=== PATIENT | male | born 1950 | race Caucasian/White ===

== ENCOUNTER 2016-12-05 10:16 | Emergency (ER) | payer OTHER ==
[~2016-12-05] VITALS: Ht 167.6 cm; Wt 84.0 kg
[2016-12-05 10:29] VITALS: Ht 167.6 cm; Wt 84.0 kg
--- NOTE | 2016-12-05 14:22 | ERA ---
ER Documentation Chief Complaint Date/Time DATE: 12/05/16 TIME: 14:21 Chief Complaint dizziness starting this morning; nausea HPI The patient is a 66-year-old male, presenting to the ER because he felt dizzy as if the room is spinning this morning. He has similar symptoms previously. The symptoms started when he got up from sitting down. He has similar symptoms previously. He denies headache, fever, chills, neck pain, chest pain, dyspnea, abdominal pain, vomiting, diarrhea, constipation. He does not smoke, drink Past medical history: Hypertension, CAD, psoriasis Past medical history: Cardiac angiogram 5 years ago ROS All systems reviewed and are negative except as per history of present illness. Medications Home Meds Active Scripts Meclizine Hcl* (Meclizine Hcl*) 25 Mg Tablet, 25 MG PO Q8H Y for DIZZINESS, #20 TAB Prov:ANGELICA KOENIG MD 12/05/16 Reported Medications Aspirin (Low Dose Aspirin) 81 Mg Tablet.dr, 81 MG PO DAILY, #30 TAB 12/05/16 Amlodipine Besylate* (Norvasc*) 5 Mg Tablet, 5 MG PO DAILY, TAB 12/05/16 Simvastatin* (Zocor*) 20 Mg Tablet, 20 MG PO QHS, #30 TAB 12/05/16 Metoprolol Succinate* (Toprol XL*) 100 Mg Tab.sr.24h, 100 MG PO DAILY, #30 TAB 12/05/16 Allergies Allergies: Coded Allergies: No Known Allergy (Unverified , 12/05/16) Physical Exam Vitals Vital Signs Date Time Temp Pulse Resp B/P Pulse Ox O2 Delivery O2 Flow Rate FiO2 12/05/16 10:29 97.6 62 18 180/84 98 Physical Exam Const: No acute distress. Head: Atraumatic. Eyes: Normal Conjunctiva. ENT: Normal External Ears, Nose and Mouth. Neck: Full range of motion. No meningismus. Resp: Clear to auscultation bilaterally. Cardio: Regular rate and rhythm, no murmurs. Abd: Soft, non distended, normal bowel sounds, non tender. Skin: No petechiae or rashes. Back: No midline or flank tenderness. Ext: No cyanosis, or edema. Neur: Awake and alert. No focal deficit Psych: Normal Mood and Affect. Result Diagram: 12/05/16 1445 12/05/16 1445 Results 24 hrs Laboratory Tests Test 12/05/16 14:45 Activated Partial Thromboplast Time 27.5Sec Anion Gap 15 Basophils # 0.010^3/ul Basophils % 0.5% Blood Urea Nitrogen 16mg/dl Calcium Level 9.3mg/dl Carbon Dioxide Level 29mmol/L Chloride Level 103mmol/L Creatinine 0.65mg/dl Eosinophils # 0.010^3/ul Eosinophils % 0.2% Glucose Level 98mg/dl Hematocrit 41.0% Hemoglobin 13.7g/dl INR International Normalized Ratio 0.95 Lymphocytes # 1.210^3/ul Lymphocytes % 14.7% Mean Corpuscular Hemoglobin 30.6pg Mean Corpuscular Hemoglobin Concent 33.3g/dl Mean Corpuscular Volume 91.8fl Mean Platelet Volume 8.6fl Monocytes # 0.510^3/ul Monocytes % 6.0% Neutrophils # 6.410^3/ul Neutrophils % 78.6% Nucleated Red Blood Cells # 0.010^3/ul Nucleated Red Blood Cells % 0.0/100WBC Platelet Count 92137^3/UL Potassium Level 4.0mmol/L Prothrombin Time 12.7Sec Prothrombin Time Ratio 1.0 Red Blood Count 4.4610^6/ul Red Cell Distribution Width 13.8% Sodium Level 143mmol/L White Blood Count 8.110^3/ul Current Medications Medications (Trade) Dose Ordered Sig/Rogelio Route PRN Reason Start Time Stop Time Status Last Admin Dose Admin Meclizine HCl (Antivert) 25 mg ONCE ONCE PO 12/05/16 15:00 12/05/16 15:01 DC 12/05/16 15:54 Procedures/MDM EKG: Read by emergency physician Rate/Rhythm: Normal Sinus Rhythm 60 beats per min QRS, ST, T-waves: No ST elevation, no T wave inversion Impression: Normal EKG [place] [id number] Radiology Main Line: [phone] DIAGNOSTIC IMAGING REPORT Patient: GABY CRENSHAW : 1950 Age: 66 Sex: M MR #: [id number] DOS: 12/05/16 1436 Ordering MD: ANGELICA KOENIG MD Location: E/R Room/Bed: PROCEDURE: CT Brain without contrast. CLINICAL INDICATION: Dizziness, syncope TECHNIQUE: Routine CT scan of the brain was performed on a high resolution multi detector scanner without intravenous contrast. One or more of the following dose reduction techniques were used: Automated exposure control; Adjustment of the mA and/or kV according to patient size; Use of iterative reconstruction technique. CTDI = 44 mGy. DLP = 720 mGy-cm. COMPARISON: No prior relevant examinations are available for comparison. FINDINGS: Hemorrhage: No evidence of intracranial hemorrhage. Acute ischemic changes: No evidence of acute ischemic changes. Mass effect/Midline shift: None. Parenchymal volume: Within normal limits for age. Ventricular system: Concordant with parenchymal volume. Chronic changes: Mild chronic-appearing microvascular ischemic changes of the supratentorial white matter. Atherosclerotic calcifications of the cavernous portions of both internal carotid arteries are present. Extracranial soft tissues: Unremarkable. Calvarium: No fractures. 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 Paranasal sinuses: Visualized paranasal sinuses are clear. Mastoid air cells: Visualized mastoid air cells are clear. IMPRESSION: No acute intracranial abnormalities. Mild chronic-appearing microvascular ischemic changes of the supratentorial white matter. RPTAT: AADD .Chucho Paul MD, MD Date Time Electronically viewed and signed by .Chucho Paul MD, on 12/05/2016 15:41 .B/ CC: ANGELICA KOENIG MD MEDICAL MAKING DECISION: The patient is a 66-year-old male, presenting with acute dizziness of unclear etiology. The differential diagnoses considered include but are not limited to central causes such as cerebellar infarct, cerebellar hemorrhage, cerebellar tumor, acoustic neuroma, peripheral causes such as benign positional vertigo, labyrinthitis, medication, Meniere's disease. He was treated with Antivert with good response. Departure Diagnosis: Primary Impression: Dizziness Condition: Good Comments He was discharged with Antivert I discussed the findings with the patient. I advised the patient to follow-up with the primary physician in about 1-2 days, sooner if needed and return if any concern. ANGELICA KOENIG MD Dec 05, 2016 14:21
[2016-12-05] MEDS ORDERED: METO100T13 PO (14:38)
[2016-12-05] MEDS ORDERED: AMLO5TAB4 PO (14:42)
[2016-12-05] MEDS ORDERED: ASPI-664 PO (14:42)
[2016-12-05] MEDS ORDERED: SIMV20TA97 PO (14:42)
[2016-12-05] MEDS ORDERED: MECLIZINE 12.5 MG TAB PO ONE (15:00)
[2016-12-05 15:09] LABS: BASOPHILS % 0.5 % (0.0-2.0); EOSINOPHILS % 0.2 % (0.0-7.0); HEMOGLOBIN 13.7 g/dl (14.0-18.0); LYMPHOCYTES # 1.2 10^3/ul (0.8-2.9); LYMPHOCYTES % 14.7 % (15.0-51.0); MEAN CORPUSCULAR HEMOGLOBIN 30.6 pg (29.0-33.0); MEAN CORPUSCULAR HGB CONC 33.3 g/dl (32.0-37.0); MEAN CORPUSCULAR VOLUME 91.8 fl (82.0-101.0); MEAN PLATELET VOLUME 8.6 fl (7.4-10.4); MONOCYTE # 0.5 10^3/ul (0.3-0.9); NEUTROPHIL # 6.4 10^3/ul (1.6-7.5); NEUTROPHILS % 78.6 % (39.0-77.0); PLATELET COUNT 191 10^3/UL (140-440); RED BLOOD COUNT 4.46 10^6/ul (4.70-6.10); RED CELL DISTRIBUTION WIDTH 13.8 % (11.5-14.5); UNCORRECTED WBC 8.1 10^3/ul (4.8-10.8); WHITE BLOOD COUNT 8.1 10^3/ul (4.8-10.8)
[2016-12-05 15:10] LABS: CONDITION 1
[2016-12-05 15:11] LABS: INR 0.95; PROTIME 12.7 Sec (12.2-14.2)
[2016-12-05 15:12] LABS: PARTIAL THROMBOPLASTIN TIME 27.5 Sec (25.0-35.0)
[2016-12-05 15:17] LABS: CREATININE 0.65 mg/dl (0.61-1.24)
[2016-12-05 15:18] LABS: CALCIUM 9.3 mg/dl (8.4-10.2)
--- NOTE | 2016-12-05 15:41 | RADRPT ---
PROCEDURE: CT Brain without contrast. CLINICAL INDICATION: Dizziness, syncope TECHNIQUE: Routine CT scan of the brain was performed on a high resolution multi detector scanner without intravenous contrast. One or more of the following dose reduction techniques were used: Auto mated exposure control; Adjustment of the mA and/or kV according to patient size; Use of iterative r econstruction technique. CTDI = 44 mGy. DLP = 720 mGy-cm. COMPARISON: No prior relevant examinations are available for comparison. FINDINGS: Hemorrhage: No evidence of intracranial hemorrhage. Acute ischemic changes: No evidence of acute ischemic changes. Mass effect/Midline shift: None. Parenchymal volume: Within normal limits for age. Ventricular system: Concordant with parenchymal volume. Chronic changes: Mild chronic-appearing microvascular ischemic changes of the supratentorial white m atter. Atherosclerotic calcifications of the cavernous portions of both internal carotid arteries ar e present. Extracranial soft tissues: Unremarkable. Calvarium: No fractures. 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 Paranasal sinuses: Visualized paranasal sinuses are clear. Mastoid air cells: Visualized mastoid air cells are clear. IMPRESSION: No acute intracranial abnormalities. Mild chronic-appearing microvascular ischemic changes of the supratentorial white matter. RPTAT: AADD .Chucho Paul MD, Date Time Electronically viewed and signed by .Chucho Paul MD, MD on 12/05/2016 15:41 .B/
[2016-12-05] MEDS ORDERED: MECL-77 PO (15:46)
== END 2016-12-05 16:00 | disposition home or self-care (01) ==
LOC: E/R 10:16
DX: R42 Dizziness and giddiness (principal); I10 Essential (primary) hypertension; I25.10 Atherosclerotic heart disease of native coronary artery without angina pectoris; R55 Syncope and collapse; Z79.82 Long term (current) use of aspirin
CPT/HCPCS: 36415; 70450; 80048; 85025; 85610; 85730; 93005